=== PATIENT | female | born 1980 | race African-American/Black ===

== ENCOUNTER 2017-04-03 14:04 | Emergency (ER) | payer OTHER ==
[~2017-04-03] VITALS: Ht 162.6 cm; Wt 52.2 kg
[2017-04-03 14:17] VITALS: BP 114/72
[2017-04-03] MEDS ORDERED: NAPROXEN 500 MG TABLET PO STA (14:26)
[2017-04-03] MEDS ORDERED: HYDROcodone/APAP 5/325MG 1 TAB TABLET PO ONE (14:30)
[2017-04-03] MEDS ORDERED: PHENAZOPYRIDINE 200 MG TABLET. PO ONE (14:30)
[2017-04-03 14:38] LABS: BILIRUBIN,URINE NEGATIVE (NEG); GLUCOSE,URINE NEGATIVE (NEG); NITRITE,URINE NEGATIVE (NEG); PH,URINE 6.5; PROTEIN,URINE NEGATIVE (NEG-TRACE)
[2017-04-03 15:00] LABS: BACTERIA,URINE FEW /HPF (0-FEW); RBC,URINE 0 /HPF (0-2); SQUAMOUS EPITHELIAL CELL,UR MOD /LPF
[2017-04-03] MEDS ORDERED: PHEN100T82 PO (15:17)
[2017-04-03] MEDS ORDERED: SULF1TAB24 PO (15:17)
[2017-04-03] MEDS ORDERED: TRAM-29 PO (15:17)
--- NOTE | 2017-04-03 15:17 | PHYS DOC ---
Past Medical History Past Medical History: No Pertinent History Past Surgical History: , Tubal ligation Alcohol Use: None Drug Use: None Adult General Chief Complaint Chief Complaint: PAIN ON URINATION HPI HPI Patient is a 36 year old female with no significant medical history presents with dysuria for 3 days. Patient is also complaining of increased vaginal discharge, she is denying any chance of STD. She is refusing pelvic exam. She states she has increased vaginal discharge whenever she has a UTI. Review of Systems Review of Systems Constitutional: Denies fever or chills [] Eyes: Denies change in visual acuity, redness, or eye pain [] HENT: Denies nasal congestion or sore throat [] Respiratory: Denies cough or shortness of breath [] Cardiovascular: No additional information not addressed in HPI [] GI: Denies abdominal pain, nausea, vomiting, bloody stools or diarrhea [] : dysuria Musculoskeletal: Denies back pain or joint pain [] Integument: Denies rash or skin lesions [] Neurologic: Denies headache, focal weakness or sensory changes [] Endocrine: Denies polyuria or polydipsia [] Current Medications Current Medications Current Medications Medications (Trade) Dose Ordered Sig/Marcy Start Time Stop Time Status Last Admin Dose Admin Acetaminophen/ Hydrocodone Bitart (Lortab 5/325) 1 tab 1X ONCE 04/03/17 14:30 04/03/17 14:31 DC 04/03/17 14:37 1 TAB Naproxen (Naprosyn) 500 mg 1X STAT 04/03/17 14:26 04/03/17 14:28 DC 04/03/17 14:37 500 MG Phenazopyridine HCl (Pyridium) 200 mg 1X ONCE 04/03/17 14:30 04/03/17 14:31 DC 04/03/17 14:37 200 MG Allergies Allergies Allergies Coded Allergies Type Severity Reaction Last Updated Verified No Known Drug Allergies 11/12/16 No Physical Exam Physical Exam Constitutional: Well developed, well nourished, no acute distress, non-toxic appearance. [] HENT: Normocephalic, atraumatic, bilateral external ears normal, oropharynx moist, no oral exudates, nose normal. [] Eyes: PERRLA, EOMI, conjunctiva normal, no discharge. [] Neck: Normal range of motion, no tenderness, supple, no stridor. [] Cardiovascular:Heart rate regular rhythm, no murmur [] Lungs & Thorax: Bilateral breath sounds clear to auscultation [] Abdomen: Bowel sounds normal, soft, no tenderness, no masses, no pulsatile masses. [] Skin: Warm, dry, no erythema, no rash. [] Back: No tenderness, no CVA tenderness. [] Extremities: No tenderness, no cyanosis, no clubbing, ROM intact, no edema. [] Neurologic: Alert and oriented X 3, normal motor function, normal sensory function, no focal deficits noted. [] Psychologic: Affect normal, judgement normal, mood normal. [] Current Patient Data Vital Signs Vital Signs Date Time Temp Pulse Resp B/P (MAP) Pulse Ox O2 Delivery O2 Flow Rate FiO2 04/03/17 14:37 16 Room Air 04/03/17 14:17 98.7 90 100 98.7 Lab Values Laboratory Tests Test 04/03/17 13:28 04/03/17 14:15 POC Urine HCG, Qualitative Hcg negative (Negative) Urine Collection Type Unknown Urine Color Yellow Urine Clarity Clear Urine pH 6.5 Urine Specific Butler 1.020 Urine Protein Negative mg/dL (NEG-TRACE) Urine Glucose (UA) Negative mg/dL (NEG) Urine Ketones (Stick) Negative mg/dL (NEG) Urine Blood Negative (NEG) Urine Nitrite Negative (NEG) Urine Bilirubin Negative (NEG) Urine Urobilinogen Dipstick 1.0 mg/dL (0.2 mg/dL) Urine Leukocyte Esterase Small (NEG) Urine RBC 0 /HPF (0-2) Urine WBC 1-4 /HPF (0-4) Urine Squamous Epithelial Cells Mod /LPF Urine Amorphous Sediment Present /HPF Urine Bacteria Few /HPF (0-FEW) Urine Mucus Mod /LPF EKG EKG [] Radiology/Procedures Radiology/Procedures [] Course & Med Decision Making Course & Med Decision Making Pertinent Labs and Imaging studies reviewed. (See chart for details) Patient is in the ED with dysuria for 3 days. Negative urine hCG, urine positive for UTI. Discharged with Bactrim for 3 days. Discharged with Ultram and Pyridium for pain. Follow-up with PCP in 1-2 weeks. Provided return precautions and discharged in stable condition. Dragon Disclaimer Dragon Disclaimer This electronic medical record was generated, in whole or in part, using a voice recognition dictation system. Departure Departure Impression: Primary Impression: Urinary tract infection Disposition: 01 HOME, SELF-CARE Condition: STABLE Referrals: NO PCP (PCP) Follow-up with her own doctor in 1-2 weeks Patient Instructions: Urinary Tract Infection Additional Instructions: You were seen for urinary tract infection. Ensure you complete your antibiotics. Take the prescribed pain medicines as needed. Follow-up with your own doctor in 1-2 weeks as needed. Scripts Phenazopyridine Hcl (PYRIDIUM) 100 Mg Tablet 100 MG PO TID, #6 TAB Prov: LYNDA EDWARDS APRN 04/03/17 Tramadol Hcl (ULTRAM) 50 Mg Tablet 1 TAB PO Q6HRS, #30 TAB Prov: LYNDA EDWARDS APRN 04/03/17 Sulfamethoxazole/Trimethoprim (BACTRIM DS TABLET) 1 Each Tablet 1 TAB PO BID, #6 TAB Prov: LYNDA EDWARDS APRN 04/03/17 Problem Qualifiers Primary Impression: Urinary tract infection Urinary tract infection type: acute cystitis Hematuria presence: without hematuria Qualified Codes: N30.00 - Acute cystitis without hematuria LYNDA EDWARDS APRN April 03, 2017 15:17
== END 2017-04-03 15:20 | disposition home or self-care (01) ==
LOC: ER 14:04
DX: N30.00 Acute cystitis without hematuria (principal)
CPT/HCPCS: 81001; 81025; 99284

== ENCOUNTER 2017-08-10 13:18 | Emergency (ER) | payer OTHER ==
[~2017-08-10] VITALS: Ht 162.6 cm; Wt 52.2 kg
[~2017-08-10 13:18] MED LIST: PHEN100T82 PO; SULF1TAB24 PO; TRAM-48 PO
[2017-08-10 13:40] VITALS: BP 119/88
[2017-08-10] MEDS ORDERED: HYDROcodone/APAP 5/325MG 1 TAB TABLET PO ONE (14:00)
[2017-08-10] MEDS ORDERED: AMOX500C PO (14:03)
--- NOTE | 2017-08-10 14:04 | PHYS DOC ---
Past Medical History Past Medical History: No Pertinent History Past Surgical History: , Tubal ligation Alcohol Use: Occasionally Drug Use: None Adult General Chief Complaint Chief Complaint: DENTAL PROBLEM [place] HPI Patient is a 36 year old female presents to the emergency department stating that she is having right upper dental pain and discomfort. She states that this been going on for a while. She states that she has broken off tooth off and is doing with the pain. She states that she's been taken Tylenol and ibuprofen with minimal to no relief. She states last site she was running a temperature anywhere between 10o to 101. She denies any nausea or vomiting. She states that she does have a dentist in which she just received dental insurance. She does not have a dental appointment at this time. Review of Systems Review of Systems Constitutional: Denies fever or chills [] Eyes: Denies change in visual acuity, redness, or eye pain [] HENT: Denies nasal congestion or sore throat. Complaint of right upper dental pain and discomfort Respiratory: Denies cough or shortness of breath [] Cardiovascular: No additional information not addressed in HPI [] GI: Denies abdominal pain, nausea, vomiting, bloody stools or diarrhea [] : Denies dysuria or hematuria [] Musculoskeletal: Denies back pain or joint pain [] Integument: Denies rash or skin lesions [] Neurologic: Denies headache, focal weakness or sensory changes [] Endocrine: Denies polyuria or polydipsia [] Allergies Allergies Allergies Coded Allergies Type Severity Reaction Last Updated Verified No Known Drug Allergies 11/12/16 No Physical Exam Physical Exam Constitutional: Well developed, well nourished, no acute distress, non-toxic appearance. [] HENT: Normocephalic, atraumatic, bilateral external ears normal, oropharynx moist, no oral exudates, nose normal. Bilateral tympanic membranes appear to be normal. Throat with no redness noted. Patient did have tenderness noted at the # 3 tooth. She does have increased redness noted there does appear to be a fractured off tooth that appear to be fractured for some time. No drainage or discharge noted at the site. Minimal swelling noted to the right upper cheek area. Eyes: PERRLA, EOMI, conjunctiva normal, no discharge. [] Neck: Normal range of motion, no tenderness, supple, no stridor. [] Cardiovascular:Heart rate regular rhythm, no murmur [] Lungs & Thorax: Bilateral breath sounds clear to auscultation [] Skin: Warm, dry, no erythema, no rash. [] Back: No tenderness Extremities: No tenderness, no cyanosis, no clubbing, ROM intact, no edema. [] Neurologic: Alert and oriented X 3, normal motor function, normal sensory function, no focal deficits noted. [] Psychologic: Affect normal, judgement normal, mood normal. [] Current Patient Data Vital Signs Vital Signs Date Time Temp Pulse Resp B/P (MAP) Pulse Ox O2 Delivery O2 Flow Rate FiO2 08/10/17 13:40 98.8 74 18 99 Room Air 98.8 EKG EKG [] Radiology/Procedures Radiology/Procedures [] Course & Med Decision Making Course & Med Decision Making Pertinent Labs and Imaging studies reviewed. (See chart for details) Patient will be provided with hydrocodone here in the emergency department as her boyfriend has brought her to the emergency department. Patient will be discharged home on amoxicillin 1 tablet 4 times a day for the next 10 days. Recommended that she follow up with her dentist recommended Tylenol and ibuprofen for pain and discomfort. Patient agrees with discharge instructions, treatment regimens and follow-up recommendations. Since symptoms to return back to emergency department as been provided. All questions and concerns been answered at the patient's bedside. [] Dragon Disclaimer Dragon Disclaimer This electronic medical record was generated, in whole or in part, using a voice recognition dictation system. Departure Departure Impression: Primary Impression: Dental abscess Disposition: 01 HOME, SELF-CARE Condition: STABLE Referrals: NO PCP (PCP) Patient Instructions: Dental Abscess Additional Instructions: Activity as tolerated. Tylenol or ibuprofen for pain and discomfort. Antibiotics as prescribed. Follow-up with the dentist within the next week. Return back to emergency prior signs symptoms become worse. Scripts Amoxicillin (AMOXICILLIN) 500 Mg Capsule 1 CAP PO QID, #40 CAP Prov: ESPERANZA MONSON APRN 08/10/17 ESPERANZA MONSON APRN Aug 10, 2017 14:03
== END 2017-08-10 14:14 | disposition home or self-care (01) ==
LOC: ER 13:18
DX: K04.7 Periapical abscess without sinus (principal)
CPT/HCPCS: 99283

== ENCOUNTER 2017-12-29 07:28 | Emergency (ER) | payer OTHER ==
[2017-12-29] MEDS: HYDROcodone/APAP 5/325MG 1 TAB TABLET PO ×2 (08:01)
[2017-12-29] MEDS: CYCLOBENZAPRINE 10 MG TABLET. PO ×2 (08:01)
[2017-12-29] MEDS: NAPROXEN 500 MG TABLET PO ×2 (08:01)
== END 2017-12-29 09:24 | disposition home or self-care (01) ==
LOC: ER 07:28
DX: S20.211A Contusion of right front wall of thorax, initial encounter (principal); Y04.8XXA Assault by other bodily force, initial encounter; Y93.89 Activity, other specified; Y92.89 Other specified places as the place of occurrence of the external cause; Y99.8 Other external cause status
CPT/HCPCS: 71101; 99283; 99284

== ENCOUNTER 2018-10-13 15:33 | Emergency (ER) | payer SELFPAY ==
[~2018-10-13] VITALS: Ht 162.6 cm; Wt 54.4 kg
[~2018-10-13 15:33] MED LIST changes: +AMOX500C PO; +CYCL10TA2 PO; +IBUP-1007 PO
[2018-10-13 15:42] VITALS: BP 138/60
[2018-10-13] MEDS ORDERED: GABA-586 PO (15:57)
[2018-10-13] MEDS ORDERED: CYCL10TA2 PO (15:57)
[2018-10-13] MEDS ORDERED: NAPR500T8 PO (15:57)
--- NOTE | 2018-10-13 15:57 | PHYS DOC ---
Past Medical History Past Medical History: No Pertinent History Past Surgical History: , Tubal ligation Alcohol Use: None Drug Use: None Adult General Chief Complaint Chief Complaint: RIB PAIN HPI HPI Patient is a 37 year old female who presents today complaining of 8 out of 10 right sided rib pain that began 3 days ago, patient denies any known injury. 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 She works in a long term in [employer] department. She states she is always moving and lifting items. She states the pain is worse when moving and lifting heavy items at home. She states her own mother thought she had a muscle strain. She states she is on naproxen, she states naproxen is not helping with her pain. She is requesting something stronger that will take her through the next 3 days. I recommended muscle relaxer. She is still insisting on getting something stronger. Informed patient we will not write her any narcotic pain medicine, there is no indication for narcotic pain medicine for musculoskeletal pain. Offered a prescription for cyclobenzaprine, naproxen and gabapentin. Instructed that follow-up with her own doctor. Review of Systems Review of Systems Constitutional: Denies fever or chills [] Eyes: Denies change in visual acuity, redness, or eye pain [] HENT: Denies nasal congestion or sore throat [] Respiratory: Right-sided rib pain. Denies cough or shortness of breath [] Cardiovascular: No additional information not addressed in HPI [] GI: Denies abdominal pain, nausea, vomiting, bloody stools or diarrhea [] : Denies dysuria or hematuria [] Musculoskeletal: Denies back pain or joint pain [] Integument: Denies rash or skin lesions [] Neurologic: Denies headache, focal weakness or sensory changes [] All other systems were reviewed and found to be within normal limits, except as documented in this note. Allergies Allergies Allergies Coded Allergies Type Severity Reaction Last Updated Verified No Known Drug Allergies 11/12/16 No Physical Exam Physical Exam Constitutional: Well developed, well nourished, no acute distress, non-toxic appearance. [] HENT: Normocephalic, atraumatic, bilateral external ears normal, oropharynx moist, no oral exudates, nose normal. [] Eyes: PERRLA, EOMI, conjunctiva normal, no discharge. [] Neck: Normal range of motion, no tenderness, supple, no stridor. [] Cardiovascular:Heart rate regular rhythm, no murmur [] Lungs & Thorax: Bilateral breath sounds clear to auscultation [] Abdomen: Bowel sounds normal, soft, no tenderness, no masses, no pulsatile masses. [] Skin: Warm, dry, no erythema, no rash. [] Back: No tenderness, no CVA tenderness. [] Extremities: No tenderness, no cyanosis, no clubbing, ROM intact, no edema. [] Neurologic: Alert and oriented X 3, normal motor function, normal sensory function, no focal deficits noted. [] Psychologic: Affect normal, judgement normal, mood normal. [] Current Patient Data Vital Signs Vital Signs Date Time Temp Pulse Resp B/P (MAP) Pulse Ox O2 Delivery O2 Flow Rate FiO2 10/13/18 15:42 98.3 83 16 138/60 (86) 97 Room Air 98.3 EKG EKG [] Radiology/Procedures Radiology/Procedures [] Course & Med Decision Making Course & Med Decision Making Pertinent Labs and Imaging studies reviewed. (See chart for details) See history of present illness Dragon Disclaimer Dragon Disclaimer This electronic medical record was generated, in whole or in part, using a voice recognition dictation system. Departure Departure Impression: Primary Impression: Musculoskeletal pain Additional Impression: Chest wall muscle strain Disposition: 01 HOME, SELF-CARE Referrals: NO PCP (PCP) follow up in one week Patient Instructions: Muscle Strain Additional Instructions: You have evaluated in the emergency room with pain consistent with a muscle strain. Please apply ice to the affected area. We highly recommend you follow- up with your own primary care doctor in the course of this week. Take the prescribed medications as ordered. Scripts Naproxen (NAPROXEN) 500 Mg Tablet. 1 TAB PO BID, #20 TAB 0 Refills Prov: LYNDA EDWARDS APRN 10/13/18 Cyclobenzaprine Hcl (CYCLOBENZAPRINE HCL) 10 Mg Tablet 1 TAB PO TID, #30 TAB Prov: LYNDA EDWARDS SIFTER OPERATOR 10/13/18 Gabapentin (GABAPENTIN) 300 Mg Capsule 300 MG PO TID, #30 CAP Prov: LYNDA EDWARDS SIFTER OPERATOR 10/13/18 Problem Qualifiers Additional Impression: Chest wall muscle strain Encounter type: initial encounter Qualified Codes: S29.011A - Strain of muscle and tendon of front wall of thorax, initial encounter LYNDA EDWARDS APRN Oct 13, 2018 15:57
== END 2018-10-13 16:27 | disposition home or self-care (01) ==
LOC: ER 15:33
DX: S29.011A Strain of muscle and tendon of front wall of thorax, initial encounter (principal); Z98.890 Other specified postprocedural states; Z90.89 Acquired absence of other organs; X50.0XXA Overexertion from strenuous movement or load, initial encounter; Y93.89 Activity, other specified; Y92.89 Other specified places as the place of occurrence of the external cause; Y99.0 Civilian activity done for income or pay
CPT/HCPCS: 99283

== ENCOUNTER 2019-06-21 09:24 | Emergency (ER) | payer SELFPAY ==
[~2019-06-21] VITALS: Ht 162.6 cm; Wt 54.4 kg
[~2019-06-21 09:24] MED LIST changes: +GABA300C18 PO; +NAPR500T8 PO
--- NOTE | 2019-06-21 10:46 | PHYS DOC ---
Past Medical History Past Medical History: No Pertinent History Past Surgical History: , Tubal ligation Alcohol Use: None Drug Use: None Adult General Chief Complaint Chief Complaint: HEADACHE HPI HPI Patient is a 38 year old AA female, accompanied by her significant other, with complaints of a severe headache that is worse on the right side accompanied by photophobia, nausea, and vomiting for the last 3 days. Currently the pain is a 10 out of 10 on pain scale, there are no alleviating or exacerbating factors. ROS She denies any fever, ringing in her ears, ear pain, neck pain, cough, shortness of breath, abdominal pain, chest pain, or palpitations. She states she had a history of migraines with similar symptoms when she was a teenager. She reports that her last vision exam was within the last 6 months. All other ROS is neg unless otherwise noted in HPI. Review of Systems Review of Systems SEE ABOVE Current Medications Current Medications Current Medications Medications (Trade) Dose Ordered Sig/Marcy Start Time Stop Time Status Last Admin Dose Admin Dexamethasone Sodium Phosphate (Decadron) 10 mg 1X ONCE 06/21/19 11:00 06/21/19 11:11 DC 06/21/19 11:16 10 MG Diphenhydramine HCl (Benadryl) 25 mg 1X ONCE 06/21/19 11:00 06/21/19 11:11 DC 06/21/19 11:16 25 MG Metoclopramide HCl (Reglan Vial) 10 mg 1X ONCE 06/21/19 11:00 06/21/19 11:11 DC 06/21/19 11:16 10 MG Sodium Chloride 1,000 ml @ 1,000 mls/hr 1X ONCE 06/21/19 11:00 06/21/19 11:59 DC 06/21/19 11:15 1,000 MLS/HR Allergies Allergies Allergies Coded Allergies Type Severity Reaction Last Updated Verified No Known Drug Allergies 11/12/16 No Physical Exam Physical Exam SEE ABOVE Constitutional: Well developed, well nourished, no acute distress, non-toxic appearance. [] HENT: Normocephalic, atraumatic, bilateral external ears normal, oropharynx moist, no oral exudates, nose normal. [] Eyes: PERRLA, EOMI, conjunctiva normal, no discharge. [] Neck: Normal range of motion, no tenderness, supple, no stridor. [] Cardiovascular:Heart rate regular rhythm, no murmur [] Lungs & Thorax: Bilateral breath sounds clear to auscultation [] Skin: Warm, dry, no erythema, no rash. [] Extremities: No cyanosis, ROM intact, no edema. [] Neurologic: Alert and oriented X 3, normal motor function, normal sensory function, no focal deficits noted. [] Psychologic: Affect normal, judgement normal, mood normal. [] Current Patient Data Vital Signs Vital Signs Date Time Temp Pulse Resp B/P (MAP) Pulse Ox O2 Delivery O2 Flow Rate FiO2 06/21/19 12:01 86 18 98 06/21/19 09:42 98.0 115/72 (86) Room Air 98.0 Lab Values Laboratory Tests Test 06/21/19 09:42 POC Urine HCG, Qualitative Hcg negative (Negative) EKG EKG [] Radiology/Procedures Radiology/Procedures [] Course & Med Decision Making Course & Med Decision Making Pertinent Labs and Imaging studies reviewed. (See chart for details) dx: Migraine headache She was given a liter of normal saline, 25 mg of IV Benadryl, 10 mg of IV Decadron, and 10 mg of IV Reglan. She reported complete relief of pain after these medications. Reports that she feels better. At discharge patient rated the pain a 0 out of 10 on the pain scale. Prescription was written for Fioricet tablets without codeine. Patient was encouraged follow-up with her primary care doctor next week. Go home and rest in a cool dark room. Return to the ER if symptoms worsen. Patient verbalized an understanding of home care, medications, follow-up, and return to ED instructions and was in agreement with the plan of care. [] Dragon Disclaimer Dragon Disclaimer This electronic medical record was generated, in whole or in part, using a voice recognition dictation system. Departure Departure Impression: Primary Impression: Migraine headache Disposition: HOME, SELF-CARE Condition: STABLE Referrals: NO PCP (PCP) Patient Instructions: Migraine Headache, [id number] Additional Instructions: Fill the prescriptions and use as directed. Recommend you go home and rest in a cool dark room. Follow-up with your primary care doctor next week, return to the ER if symptoms worsen. Scripts Butalb/Acetaminophen/Caffeine ([id number] 50-325-40) 1 Each Tablet 1-2 TAB PO Q4HRS PRN for PAIN MDD 6 tabs for 4 Days, #20 TAB 0 Refills NOT TO EXCEED MORE THAN 6 TABS IN 24 HOURS Prov: HENRIQUE RODRÍGUEZ BUSINESS RESILIENCY MANAGER 06/21/19 Problem Qualifiers Primary Impression: Migraine headache Migraine type: unspecified Status migrainosus presence: without status migrainosus Intractability: not intractable Qualified Codes: G43.909 - Migraine, unspecified, not intractable, without status migrainosus HENRIQUE RODRÍGUEZ BUSINESS RESILIENCY MANAGER Jun 21, 2019 10:46
[2019-06-21] MEDS ORDERED: IV NORMAL SALINE 1000ML BAG 1,000 ML IV ONE (11:00)
[2019-06-21] MEDS ORDERED: DEXAMETHASONE SOD PHOS 20 MG/5 ML VIAL. IV ONE (11:00)
[2019-06-21] MEDS ORDERED: diphenhydrAMINE 50 MG/ML VIAL IVP ONE (11:00)
[2019-06-21] MEDS ORDERED: METOCLOPRAMIDE HCL 10 MG/2 ML VIAL. IV ONE (11:00)
[2019-06-21 12:01] VITALS: BP 116/65
[2019-06-21] MEDS ORDERED: BUTA1TAB23 PO (12:07)
== END 2019-06-21 12:38 | disposition home or self-care (01) ==
LOC: ER 09:24
DX: G43.909 Migraine, unspecified, not intractable, without status migrainosus (principal); H53.149 Visual discomfort, unspecified; R11.2 Nausea with vomiting, unspecified; Z98.890 Other specified postprocedural states; Z98.51 Tubal ligation status
CPT/HCPCS: 81025; 96361; 96374; 96375; 99284; J1100; J1200; J2765; J7030